=== PATIENT | male | born 1990 | race Caucasian/White ===

== ENCOUNTER 2023-10-21 16:00 | Outpatient (CLI) | payer BC | END 2023-10-21 16:01 | disposition home or self-care (01) | LOC: SLEEPLAB 16:00 | PROVIDERS: ATTEND Physician Assistant | DX: G47.33 Obstructive sleep apnea (adult) (pediatric) (principal); I11.9 Hypertensive heart disease without heart failure; G47.61 Periodic limb movement disorder; G31.84 Mild cognitive impairment of uncertain or unknown etiology; F41.8 Other specified anxiety disorders; K21.9 Gastro-esophageal reflux disease without esophagitis; E66.9 Obesity, unspecified; R06.83 Snoring; R35.1 Nocturia; R51.9 Headache, unspecified; R53.83 Other fatigue; R09.89 Other specified symptoms and signs involving the circulatory and respiratory systems | CPT/HCPCS: 95810 ==

== ENCOUNTER 2024-04-16 10:41 | Outpatient (CLI) | payer OTHER | END 2024-04-16 10:42 | disposition home or self-care (01) | LOC: BICULT 10:41 | PROVIDERS: ATTEND Physician Assistant | DX: R16.0 Hepatomegaly, not elsewhere classified (principal); K76.0 Fatty (change of) liver, not elsewhere classified | CPT/HCPCS: 76705 ==

== ENCOUNTER 2025-06-01 14:05 | Outpatient (CLI) | payer OTHER | END 2025-06-01 14:06 | disposition home or self-care (01) | LOC: SCSULT 14:05 | PROVIDERS: ATTEND Physician Assistant | DX: R22.31 Localized swelling, mass and lump, right upper limb (principal) | CPT/HCPCS: 76999 ==